=== PATIENT | female | born 1990 | race American Indian/Alaskan Native ===

== ENCOUNTER 2016-09-26 19:00 | Emergency (ER) | payer SELFPAY ==
[2016-09-26 19:27] VITALS: BP 145/95
[2016-09-26 20:15] LABS: Anion Gap 15 mmol/L; Blood Urea Nitrogen 10 mg/dL (7-17); Calcium 9.3 mg/dL (8.4-10.2); Carbon Dioxide 26 mmol/L (22-30); Chloride 101.9 mmol/L (98-107); Glucose 102 mg/dL (65-100); Potassium 3.7 mmol/L (3.6-5.0); Sodium 139 mmol/L (137-145)
[2016-09-26 20:33] LABS: Basophils % (Auto) 0.3 % (0.0-1.8); Eosinophils % (Auto) 0.9 % (0.0-4.3); Hematocrit 41.6 % (30.3-42.9); Hemoglobin 13.8 gm/dl (10.1-14.3); Mean Corpuscular HGB Conc 33 % (30-34); Mean Corpuscular Hemoglobin 30 pg (28-32); Mean Corpuscular Volume 92 fl (79-97); Platelet Count 226 K/mm3 (140-440); Red Blood Count 4.53 M/mm3 (3.65-5.03); Red Cell Distribution Width 13.9 % (13.2-15.2); White Blood Count 7.4 K/mm3 (4.5-11.0)
[2016-09-26 21:49] LABS: Bilirubin,Urine NEG (Negative); Blood,Urine SM (Negative); Ketones,Urine TR mg/dL (Negative); Leukocyte Esterase,Urine NEG (Negative); Mucus,Urine FEW /HPF; Nitrite,Urine NEG (Negative); Protein,Urine <15 mg/dL mg/dL (Negative); Urobilinogen,Urine < 2.0 mg/dL (<2.0); WBC,Urine < 1.0 /HPF (0.0-6.0)
== END 2016-09-26 19:45 | disposition left against medical advice (07) ==
LOC: ED 19:00
DX: R10.9 Unspecified abdominal pain (principal); Z53.21 Procedure and treatment not carried out due to patient leaving prior to being seen by health care provider
CPT/HCPCS: 36415; 80048; 81001; 81025; 85025

== ENCOUNTER 2016-12-23 14:21 | Emergency (ER) | payer MEDICAID ==
--- NOTE | 2016-12-23 15:06 | Emergency Department Report ---
ED Abdominal Pain HPI - General Chief Complaint: Pain General Stated Complaint: 16 WKS /BODY SORE/HEADACHE Time Seen by Provider: 12/23/16 14:58 Source: patient Mode of arrival: Ambulatory Limitations: No Limitations - History of Present Illness Complaint: abdominal pain -: Gradual, days(s) (2) Location: diffuse Radiation: none Migration to: no migration Severity: moderate Severity scale (0 -10): 4 Quality: cramping Consistency: constant Improves With: nothing Worsens With: nothing Associated Symptoms: denies: denies other symptoms (entire body hurts), nausea, vomiting, diarrhea, chills, constipation, dysuria, hematemesis, melena, hematuria, anorexia, syncope - Related Data LMP (females 10-50): other (concerned bc preg and cant get care bc she has no card. they told her she had to be a pt) Home Medications Medication Instructions Recorded Confirmed Last Taken Labetalol HCl 100 PO BID 03/22/13 03/22/13 04/19/13 09:00 Previous Rx's Medication Instructions Recorded Last Taken Type Ferrous Sulfate [Feosol 325 MG tab] 325 mg PO BID #60 tablet 03/14/13 04/19/13 09:00 Rx metroNIDAZOLE [Flagyl TAB] 500 mg PO BID #14 tablet 04/20/13 Unknown Rx Acetaminophen/Codeine 1 tab PO Q6H PRN #20 tab 04/01/14 Unknown Rx [Acetaminophen-Codeine #3 TAB] Ibuprofen [Motrin 800 MG tab] 800 mg PO Q8H PRN #60 tablet 04/01/14 Unknown Rx Azithromycin [Zithromax] 500 mg PO QDAY #3 tablet 05/27/14 Unknown Rx Prednisone [predniSONE 5 mg (6-Day 5 mg PO .TAPER #1 tab.ds.pk 05/27/14 Unknown Rx Pack, 21 Tabs)] traMADol [Ultram] 50 mg PO Q6HR PRN #20 tablet 05/27/14 Unknown Rx Amoxicillin [Trimox CAP] 500 mg PO BID #20 capsule 06/25/15 Unknown Rx Ibuprofen [Motrin 800 MG tab] 800 mg PO Q8HR PRN #30 tablet 06/25/15 Unknown Rx Amoxicillin [Trimox CAP] 500 mg PO BID #20 capsule 12/23/16 Unknown Rx Allergies Allergy/AdvReac Type Severity Reaction Status Date / Time No Known Allergies Allergy Unverified 03/14/13 02:38 ED Review of Systems ROS: Stated complaint: 16 WKS /BODY SORE/HEADACHE Other details as noted in HPI Comment: All other systems reviewed and negative Constitutional: no symptoms reported, see HPI, malaise, other (post nasal gtt. asthma not giving her any problems. ). denies: chills, diaphoresis, fever Eyes: as per HPI. denies: eye pain, eye discharge, vision change ENT: as per HPI. denies: ear pain, throat pain, dental pain, hearing loss, epistaxis Respiratory: no symptoms reported, see HPI. denies: cough, orthopnea Cardiovascular: as per HPI. denies: chest pain, palpitations, dyspnea on exertion, orthopnea Endocrine: no symptoms reported, see HPI. denies: excessive sweating, flushing , intolerance to cold, intolerance to heat Gastrointestinal: as per HPI, abdominal pain, other (eating po). denies: nausea , vomiting, diarrhea, constipation, hematemesis, melena, hematochezia Genitourinary: as per HPI, other (no urinary s/s; no fever; no vag bleed or dc; not concerned for std; term infant had bp problems w preg; has not got care). denies: urgency, dysuria, frequency, hematuria, discharge, abnormal menses, dyspareunia Musculoskeletal: as per HPI. denies: back pain, joint swelling, arthralgia, myalgia Skin: as per HPI. denies: rash, lesions Neurological: as per HPI, weakness. denies: headache, numbness, paresthesias, confusion, abnormal gait, vertigo Psychiatric: as per HPI, other (tearful) Hematological/Lymphatic: as per HPI. denies: easy bleeding, easy bruising ED Past Medical Hx - Past Medical History Previous Medical History?: Yes Hx Hypertension: Yes (not prescibed meds- was w preg) Hx Congestive Heart Failure: No Hx Diabetes: No Hx Deep Vein Thrombosis: No Hx Renal Disease: No Hx Sickle Cell Disease: No Hx Seizures: No Hx Asthma: Yes Hx COPD: No Hx HIV: No Additional medical history: Sinus infection - Surgical History Past Surgical History?: Yes Additional Surgical History: csection. term - Family History Family history: no significant - Social History Smoking Status: Never Smoker Substance Use Type: Alcohol, Non Opiate Pain - Medications Home Medications: Home Medications Medication Instructions Recorded Confirmed Last Taken Type Ferrous Sulfate [Feosol 325 MG tab] 325 mg PO BID #60 tablet 03/14/13 04/19/13 09:00 Rx Labetalol HCl 100 PO BID 03/22/13 03/22/13 04/19/13 09:00 History metroNIDAZOLE [Flagyl TAB] 500 mg PO BID #14 tablet 04/20/13 Unknown Rx Acetaminophen/Codeine 1 tab PO Q6H PRN #20 tab 04/01/14 Unknown Rx [Acetaminophen-Codeine #3 TAB] Ibuprofen [Motrin 800 MG tab] 800 mg PO Q8H PRN #60 tablet 04/01/14 Unknown Rx Azithromycin [Zithromax] 500 mg PO QDAY #3 tablet 05/27/14 Unknown Rx Prednisone [predniSONE 5 mg (6-Day 5 mg PO .TAPER #1 tab.ds.pk 05/27/14 Unknown Rx Pack, 21 Tabs)] traMADol [Ultram] 50 mg PO Q6HR PRN #20 tablet 05/27/14 Unknown Rx Amoxicillin [Trimox CAP] 500 mg PO BID #20 capsule 06/25/15 Unknown Rx Ibuprofen [Motrin 800 MG tab] 800 mg PO Q8HR PRN #30 tablet 06/25/15 Unknown Rx Amoxicillin [Trimox CAP] 500 mg PO BID #20 capsule 12/23/16 Unknown Rx ED Physical Exam - General Limitations: No Limitations General appearance: alert, in no apparent distress - Head Head exam: Present: atraumatic - Eye Eye exam: Present: PERRL - ENT ENT exam: Present: normal exam, mucous membranes moist, other (eating all day while in er) - Neck Neck exam: Present: normal inspection, full ROM. Absent: tenderness, meningismus, lymphadenopathy, thyromegaly - Respiratory Respiratory exam: Present: normal lung sounds bilaterally. Absent: respiratory distress, wheezes, rales, rhonchi, stridor, chest wall tenderness, accessory muscle use, decreased breath sounds, prolonged expiratory - Cardiovascular Cardiovascular Exam: Present: regular rate, normal rhythm - GI/Abdominal GI/Abdominal exam: Present: soft, normal bowel sounds. Absent: distended, tenderness, guarding, rebound, rigid, diminished bowel sounds, hyperactive bowel sounds, hypoactive bowel sounds, organomegaly, mass, bruit, pulsatile mass - Rectal Rectal exam: Present: deferred - External exam: Present: normal external exam Speculum exam: Present: normal speculum exam Bi-manual exam: Present: normal bi-manual exam - Extremities Exam Extremities exam: Present: normal inspection, full ROM, normal capillary refill. Absent: tenderness, pedal edema, joint swelling, calf tenderness - Back Exam Back exam: Present: normal inspection, full ROM. Absent: tenderness, CVA tenderness (R), CVA tenderness (L), muscle spasm, paraspinal tenderness, vertebral tenderness - Neurological Exam Neurological exam: Present: alert, altered, oriented X3, CN II-XII intact, normal gait, reflexes normal. Absent: abnormal gait, motor sensory deficit - Psychiatric Psychiatric exam: Present: normal affect, normal mood. Absent: depressed, agitated - Skin Skin exam: Present: warm, dry, intact, normal color. Absent: cyanosis, diaphoretic, erythema, urticaria, vesicles ED Course Vital Signs 12/23/16 14:46 Temperature 98 F Pulse Rate 97 H Respiratory 20 Rate Blood Pressure 112/68 O2 Sat by Pulse 100 Oximetry - Reevaluation(s) Reevaluation #1: 12/23/16 to er known preg concerned bc she cant get card for obgyn care no cough recent post nasal sinus kline no cp or sob asthma not problematic no dysuria no vag dc not concerned of std eating all day Reevaluation #2: 12/23/16 18:47 labs noted ua noted will tx for sinus infection cx urine- in the event pos call her prn no dysuria no vag dc abd exam benign on palpation lungs cta us noted thc noted discussed w pt dc home w obgyn fu see dc poc. ED Medical Decision Making - Lab Data Result diagrams: 12/23/16 15:21 12/23/16 15:21 - Radiology Data Radiology results: report reviewed - Medical Decision Making preg no care bc no card yet labs noted urti see exam wbc noted amox po discussed thc w pt will see ob Critical care attestation.: If time is entered above; I have spent that time in minutes in the direct care of this critically ill patient, excluding procedure time. ED Disposition Clinical Impression: IUP (intrauterine ), incidental, Sinusitis Disposition: DC-01 TO HOME OR SELFCARE Is pt being admited?: No Does the pt Need Aspirin: No Condition: Stable Instructions: (ED), Sinusitis (ED) Additional Instructions: safe sex no drugs in preg vitamin w iron tylenol for pain rest hydrate well with water follow up obgyn [facility] Prescriptions: Amoxicillin [Trimox CAP] 500 mg PO BID #20 capsule Referrals: PRIMARY CARE, [Primary Care Provider] - 3-5 Days JULIO CESAR BO MD [Staff Physician] - 3-5 Days Time of Disposition: 18:36
[2016-12-23 15:25] LABS: Urine Drugs of Abuse Note Disclamer
[2016-12-23 15:37] LABS: Bilirubin,Urine NEG (Negative); Blood,Urine NEG (Negative); Ketones,Urine NEG (Negative); Leukocyte Esterase,Urine NEG (Negative); Mucus,Urine 2+ /HPF; Nitrite,Urine NEG (Negative); Urobilinogen,Urine < 2.0 mg/dL (<2.0)
[2016-12-23 15:38] LABS: Eosinophils % (Auto) 0.1 % (0.0-4.3); Hematocrit 35.2 % (30.3-42.9); Hemoglobin 11.7 gm/dl (10.1-14.3); Mean Corpuscular HGB Conc 33 % (30-34); Mean Corpuscular Hemoglobin 31 pg (28-32); Mean Corpuscular Volume 92 fl (79-97); Platelet Count 204 K/mm3 (140-440); Red Blood Count 3.82 M/mm3 (3.65-5.03); Red Cell Distribution Width 13.5 % (13.2-15.2); White Blood Count 13.6 K/mm3 (4.5-11.0)
[2016-12-23 15:54] LABS: Alanine Aminotransferase 9 units/L (7-56); Albumin 4.1 g/dL (3.9-5); Albumin/Globulin Ratio 1.5 %; Alkaline Phosphatase 60 units/L (35-129); Anion Gap 18 mmol/L; BUN/Creatinine Ratio 11.66; Blood Urea Nitrogen 7 mg/dL (7-17); Carbon Dioxide 25 mmol/L (22-30); Chloride 96.2 mmol/L (98-107); Glucose 124 mg/dL (65-100); Potassium 3.9 mmol/L (3.6-5.0); Sodium 135 mmol/L (137-145); Total Protein 6.9 g/dL (6.3-8.2)
[2016-12-23 16:02] LABS: Bilirubin,Direct < 0.2 mg/dL (0-0.2); Bilirubin,Indirect 0.1 mg/dL
--- NOTE | 2016-12-23 16:53 | Ultrasound Report ---
Transabdominal OB ultrasound. Street: Pelvic pain. Findings: A single intrauterine is identified. The biparietal diameter measures 1.9 cm which corresponds to gestational age of 13 weeks. The femur length measures 8 mm which corresponds to a gestational age of 12 weeks 4 days. The heart rate measures 170 beats per minute. The placenta is anterior. The ovaries are normal in size and configuration. Impression: Viable intrauterine of 12 weeks 6 days gestation.
[2016-12-23 18:51] VITALS: BP 108/67
== END 2016-12-23 18:50 | disposition home or self-care (01) ==
LOC: ED 14:21
DX: J32.9 Chronic sinusitis, unspecified (principal); Z33.1 Pregnant state, incidental; J45.909 Unspecified asthma, uncomplicated
CPT/HCPCS: 36415; 76805; 80048; 80074; 80307; 81001; 84702; 85025; 86900; 86901; 87086; 99284

== ENCOUNTER 2017-03-21 02:19 | Emergency (ER) | payer MEDICAID ==
[2017-03-21 03:11] VITALS: BP 115/76
== END 2017-03-21 05:55 | disposition left against medical advice (07) ==
LOC: ED 02:19
DX: L02.422 Furuncle of left axilla (principal); Z53.21 Procedure and treatment not carried out due to patient leaving prior to being seen by health care provider

== ENCOUNTER 2017-05-10 20:11 | Outpatient (CLI) | payer MEDICAID | END 2017-05-10 20:17 | disposition home or self-care (01) | LOC: TRG 20:11 | PROVIDERS: ATTEND Midwife | DX: O36.0130 Maternal care for anti-D [Rh] antibodies, third trimester, not applicable or unspecified (principal); Z3A.29 29 weeks gestation of pregnancy | CPT/HCPCS: 86850; 86900; 86901; 96372; J2790 ==

== ENCOUNTER 2017-06-16 00:02 | Outpatient (CLI) | payer MEDICAID ==
[2017-06-16 00:55] VITALS: BP 123/64
[2017-06-16] MEDS ORDERED: NORCO 7.5/325 PO ONE (01:05)
== END 2017-06-16 01:34 | disposition home or self-care (01) ==
LOC: TRG 00:02
PROVIDERS: ATTEND Obstetrics & Gynecology
DX: O47.1 False labor at or after 37 completed weeks of gestation (principal); Z3A.37 37 weeks gestation of pregnancy
CPT/HCPCS: 59025

== ENCOUNTER 2017-06-19 02:14 | Outpatient (CLI) | payer MEDICAID ==
[2017-06-19 02:26] VITALS: BP 134/76
== END 2017-06-19 03:57 | disposition home or self-care (01) ==
LOC: TRG 02:14
PROVIDERS: ATTEND Obstetrics & Gynecology
DX: O62.9 Abnormality of forces of labor, unspecified (principal); Z3A.38 38 weeks gestation of pregnancy

== ENCOUNTER 2017-06-29 09:34 | Inpatient (IN) | payer MEDICAID ==
[2017-06-29] MEDS ORDERED: REGLAN IV NR (10:00)
[2017-06-29] MEDS ORDERED: PEPCID IV NR (10:00)
[2017-06-29] MEDS ORDERED: BICITRA PO NR (10:00)
[2017-06-29] MEDS ORDERED: ANCEF/STERILE WATER 2 GM/20 ML 2 GM/20 ML SYRINGE IV NR (10:00)
[2017-06-29] MEDS: LACTATED RINGERS 1,000 ML IV SCH ×3 (10:41→21:08)
[2017-06-29 10:52] LABS: Basophils % (Auto) 0.1 % (0.0-1.8); Eosinophils # (Auto) 0.1 K/mm3 (0.0-0.4); Eosinophils % (Auto) 0.6 % (0.0-4.3); Hematocrit 33.2 % (30.3-42.9); Hemoglobin 11.2 gm/dl (10.1-14.3); Lymphocytes # (Auto) 1.5 K/mm3 (1.2-5.4); Lymphocytes % (Auto) 14.5 % (13.4-35.0); Mean Corpuscular HGB Conc 34 % (30-34); Mean Corpuscular Hemoglobin 30 pg (28-32); Mean Corpuscular Volume 89 fl (79-97); Monocytes # (Auto) 0.8 K/mm3 (0.0-0.8); Monocytes % (Auto) 7.8 % (0.0-7.3); Platelet Count 182 K/mm3 (140-440); Red Blood Count 3.73 M/mm3 (3.65-5.03)
--- NOTE | 2017-06-29 11:15 | History and Physical Report ---
History of Present Illness Date of examination: 06/29/17 Date of admission: 06/29/17 09:34 Chief complaint: repeat c/sec at term History of present illness: This is a 27 yo at 39+ weeks for repepat c/sec. her OB problem list include previous c/sec for Preeclmapisa. EDC 07/06/17. She is rh neg received rhogam at 28 weeks. Patient of [facility] late at 20 weeks. + SMA seen by [facility]. Past History Past Medical History: asthma Past Surgical History: section [employer] History: gonorrhea Family/Genetic History: diabetes, heart disease Social history: no significant social history, single. denies: smoking, alcohol abuse, prescription drug abuse - Obstetrical History Expected Date of Delivery: 07/06/17 Actual Gestation: 39 Week(s) 0 Day(s) : 2 Para: 1 Hx # Term Pregnancies: 1 Number of Pregnancies: 0 Spontaneous Abortions: 0 Induced : 0 Number of Living Children: 1 Medications and Allergies Allergies Allergy/AdvReac Type Severity Reaction Status Date / Time No Known Allergies Allergy Verified 06/16/17 00:12 Home Medications Medication Instructions Recorded Confirmed Last Taken Type Ferrous Sulfate [Feosol 325 MG tab] 325 mg PO BID #60 tablet 03/14/13 06/19/17 04/19/13 09:00 Rx Labetalol HCl 100 mg PO BID 03/22/13 06/19/17 04/19/13 09:00 History metroNIDAZOLE [Flagyl TAB] 500 mg PO BID #14 tablet 04/20/13 06/19/17 Unknown Rx Acetaminophen/Codeine 1 tab PO Q6H PRN #20 tab 04/01/14 06/19/17 Unknown Rx [Acetaminophen-Codeine #3 TAB] Ibuprofen [Motrin 800 MG tab] 800 mg PO Q8H PRN #60 tablet 04/01/14 06/19/17 Unknown Rx Azithromycin [Zithromax] 500 mg PO QDAY #3 tablet 05/27/14 06/19/17 Unknown Rx Prednisone [predniSONE 5 mg (6-Day 5 mg PO .TAPER #1 tab.ds.pk 05/27/14 Unknown Rx Pack, 21 Tabs)] traMADol [Ultram] 50 mg PO Q6HR PRN #20 tablet 11/30/14 12/23/17 Unknown Rx Amoxicillin [Trimox CAP] 500 mg PO BID #20 capsule 06/25/15 06/19/17 Unknown Rx Ibuprofen [Motrin 800 MG tab] 800 mg PO Q8HR PRN #30 tablet 06/25/15 06/19/17 Unknown Rx Amoxicillin [Trimox CAP] 500 mg PO BID #20 capsule 12/23/16 06/19/17 Unknown Rx Active Meds: Active Medications Citric Acid/Sodium Citrate (Bicitra) 30 ml PO ONCE NR Stop: 06/29/17 16:00 Last Admin: 06/29/17 10:42 Dose: 30 ml Famotidine (Pepcid) 20 mg IV ONCE NR Stop: 06/29/17 16:00 Last Admin: 06/29/17 10:42 Dose: 20 mg Cefazolin Sodium (Ancef/Sterile Water 2 Gm/20 Ml) 2 gm in 20 mls @ 80 mls/hr IV PREOP NR PRN Reason: Protocol Stop: 06/29/17 16:00 Lactated Ringer's (Lactated Ringers) 1,000 mls @ 2,250 mls/hr IV PREOP KIKA Stop: 06/30/17 10:27 Last Admin: 06/29/17 10:52 Dose: 2,250 mls/hr Oxytocin/Sodium Chloride (Pitocin/Ns 20 Unit/1000ml Drip) 20 units in 1,000 mls @ 0 mls/hr IV TITR KIKA PRN Reason: As Directed Metoclopramide HCl (Reglan) 10 mg IV ONCE NR Stop: 06/29/17 16:00 Last Admin: 06/29/17 10:42 Dose: 10 mg Review of Systems All systems: negative - Vital Signs Vital signs: Vital Signs Pulse BP 96 H 120/68 06/29/17 10:04 06/29/17 10:04 Temp Pulse Resp BP Pulse Ox 98.2 F 92 H 18 128/79 06/29/17 10:16 06/29/17 10:46 06/29/17 10:16 06/29/17 10:46 - Physical Exam Breasts: Positive: normal Cardiovascular: Regular rate, Normal S1 Lungs: Positive: Clear to auscultation, Normal air movement Abdomen: Positive: normal appearance, soft, normal bowel sounds. Negative: distention, tenderness, guarding Genitourinary (Female): Positive: normal external genitalia, normal perenium Vulva: both: normal Vagina: Positive: normal moisture Uterus: Positive: normal size, normal contour Anus/Rectum: Positive: normal perianal skin Extremities: Positive: normal Deep Tendon Reflex Grade: Normal +2 - Obstetrical FHR: auscultation normal, category 1 Results Result Diagrams: 06/29/17 10:10 Abnormal lab results 06/29/17 Range/Units 10:10 [place] % (Auto) 7.8 H (0.0-7.3) % Seg Neutrophils % 77.0 H (40.0-70.0) % Seg Neutrophils # 7.9 H (1.8-7.7) K/mm3 All other labs normal. Assessment and Plan A/P HD#1 scheduled repeat c/sec IVF labs discussed r/b/a of repeat which include but not limited to bleeding, infection, damge to pelvic and non pelvic organs, risk of hysterectomy , risk of . patient had all opportunity for questions will proceed with repeat c/sec
--- NOTE | 2017-06-29 11:18 | Anesthesia Day of Surgery ---
Anesthesia Day of Surgery - Day of Surgery Patient Examined: Yes Patient H&P Reviewed: Yes Patient is NPO: Yes
--- NOTE | 2017-06-29 11:18 | Anesthesia Consultation ---
Anesthesia Consult and Med Hx Date of service: 06/29/17 - Airway Anesthetic Teeth Evaluation: Good ROM Head & Neck: Adequate Mental/Hyoid Distance: Adequate Mallampati Class: Class II Intubation Access Assessment: Probably Good - Pre-Operative Health Status ASA Pre-Surgery Classification: ASA2 Proposed Anesthetic Plan: General - Pulmonary Hx Asthma: Yes COPD: No Hx Pneumonia: No - Cardiovascular System Hx Hypertension: No - Central Nervous System Hx Seizures: No Hx Psychiatric Problems: No - Endocrine Hx Renal Disease: No Hx End Stage Renal Disease: No Hx Hypothyroidism: No Hx Hyperthyroidism: No - Hematic Hx Anemia: No Hx Sickle Cell Disease: No - Other Systems Hx Alcohol Use: No - Additional Comments Anesthesia Medical History Comments: Healthy. NAC previously.
[2017-06-29] MEDS ORDERED: SUBLIMAZE ONE (11:22)
[2017-06-29] MEDS ORDERED: ANCEF/STERILE WATER 2 GM/20 ML IV ONE (11:47)
[2017-06-29] MEDS ORDERED: ZOFRAN ONE (11:52)
[2017-06-29] MEDS ORDERED: WATER FOR IRRIG STERILE IR ONE (11:53)
[2017-06-29] MEDS ORDERED: NACL 0.9% IR ONE (11:53)
[2017-06-29] MEDS ORDERED: PITOCin/NS 20 UNIT/1000ML DRIP 20 UNITS/1,000 ML BAG IV SCH ×2 (12:00→13:00)
[2017-06-29] MEDS ORDERED: LACTATED RINGERS 1,000 ML IV SCH (12:00)
[2017-06-29] MEDS: PITOCin/NS 20 UNIT/1000ML DRIP 20 UNITS/1,000 ML BAG IV SCH ×2 (12:15→13:00)
[2017-06-29] MEDS ORDERED: NARCAN 0.4 MG/1 ML IV PRN (12:50)
[2017-06-29] MEDS ORDERED: MYLICON PO PRN (12:50)
[2017-06-29] MEDS ORDERED: SENOKOT PO PRN (12:50)
[2017-06-29] MEDS ORDERED: TUCKS PAD TP PRN (12:50)
[2017-06-29] MEDS ORDERED: LANSINOH TP PRN (12:50)
[2017-06-29] MEDS ORDERED: ZOFRAN IV PRN (12:50)
[2017-06-29] MEDS ORDERED: PHENERGAN PR PRN (12:50)
[2017-06-29] MEDS ORDERED: MILK OF MAGNESIA PO PRN (12:50)
[2017-06-29] MEDS ORDERED: ANUCORT-HC PR PRN (12:50)
[2017-06-29] MEDS ORDERED: TYLENOL PO PRN (12:50)
--- NOTE | 2017-06-29 12:50 | Operative Report ---
Operative Report Operative Report: Date: 06/29/17 PREOPERATIVE DIAGNOSIS: Previous section. POSTOPERATIVE DIAGNOSIS: Previous section. PROCEDURE: Repeat section. 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 ESTIMATED BLOOD LOSS: 800 mL COMPLICATIONS: None. FINDINGS: Beautiful baby girl, Apgars 8 and 9, weight is 6 pounds 1 ounces. Normal uterus, tubes and ovaries. Three-vessel cord, intact placenta. INDICATIONS: This is a 27-year-old 2, para 1, at term with history of previous section, otherwise uncomplicated course. Risks, benefits, and alternatives discussed with the patient at length including risks of morbidity and mortality of fetus, including risks of morbidity and mortality of mother, including risks of hemorrhage, infection, and injury to bowel, bladder, and uterus. Risks were accepted. The patient was taken to the operating room. Spinal anesthesia was given without difficulty. She was then prepped and draped in normal sterile fashion, dorsal supine position with leftward tilt. Pfannenstiel incision was made with scalpel carried through to the underlying layer of fascia with Bovie. Fascia was incised midline extended laterally. Rectus muscle dissected with Bovie. Peritoneum identified and entered. Bladder flap created. Uterine incision was made with scalpel, extended laterally. Clear fluid was noted. Baby girl was delivered from vertex presentation to leave suction at abdomen. Cord clamped and cut. Baby handed off to the awaiting wedding decorator. Three-vessel cord intact. Placenta was delivered spontaneously. Uterus exteriorized and cleared of all debris. Uterine incision was repaired with 0 Vicryl in a running fashion. Second layer was used to obtain hemostasis.Thissel used for excellent hemostasis. The uterus was returned to the abdomen. Uterine incision was inspected and noted to be hemostatic. The gutters were cleared of all clots. The fascia was repaired with 1 Vicryl in a running fashion. The skin was closed with 4-0 shell needle. The patient tolerated the procedure well. Sponge, lap, and needle counts were correct x3. The patient was taken to the recovery room in stable condition.
[2017-06-29] MEDS ORDERED: SODIUM CHLORIDE FLUSH SYRINGE 10 ML IV NR (13:00)
[2017-06-29] MEDS: TORADOL IV PRN (13:59)
[2017-06-29] MEDS: MORPHINE IV PRN ×2 (14:00→19:55)
[2017-06-29] MEDS ORDERED: TORADOL IV ONE (15:44)
[2017-06-30] MEDS: TORADOL IV PRN (00:25)
[2017-06-30] MEDS: PERCOCET 5/325 PO PRN ×3 (01:49→18:57)
[2017-06-30 01:51] LABS: Hematocrit 27.6 % (30.3-42.9); Hemoglobin 9.1 gm/dl (10.1-14.3)
[2017-06-30] MEDS: MOTRIN PO PRN ×2 (05:35→12:45)
[2017-06-30] MEDS ORDERED: BOOSTRIX IM ONE (06:00)
[2017-06-30] MEDS ORDERED: M-M-R II VACCINE SUB-Q ONE (06:00)
--- NOTE | 2017-06-30 08:34 | Progress Note ---
Assessment and Plan A/P POD#1 s/p repeat doing well tolerating diet flatus+ VSS bonding with baby miraaliyah for control needs rhogam rh neg continue routine Post op orders Subjective - Subjective Date of service: 06/30/17 Principal diagnosis: repeat Interval history: This is a 27 yo at 39+ weeks for repepat c/sec. her OB problem list include previous c/sec for Preeclmapisa. EDC 07/06/17. She is rh neg received rhogam at 28 weeks. Patient of [facility] late at 20 weeks. + SMA seen by [facility]. Patient reports: appetite normal, voiding normally, pain well controlled, flatus , ambulating normally [place]: doing well Objective - Vital Signs Latest vital signs: Vital Signs Temp Pulse Resp BP BP Pulse Ox 06/30/17 05:35 18 06/30/17 05:10 98.0 F 74 18 146/85 100 06/30/17 01:49 18 06/30/17 01:00 98.8 F 84 18 117/64 98 06/30/17 00:55 18 06/30/17 00:25 18 06/29/17 20:45 99.2 F 88 18 110/71 95 06/29/17 20:25 18 06/29/17 19:55 18 06/29/17 16:00 99 F 81 18 122/81 06/29/17 14:15 99.4 F 84 20 120/80 96 06/29/17 13:50 85 17 117/81 97 06/29/17 13:48 98.6 F 06/29/17 13:45 81 20 124/81 98 06/29/17 13:40 80 23 117/79 96 06/29/17 13:35 82 34 H 114/81 98 06/29/17 13:30 76 19 123/83 98 06/29/17 13:25 76 22 128/82 98 06/29/17 13:20 74 29 H 131/83 99 06/29/17 13:15 76 19 130/74 100 06/29/17 13:10 74 18 128/81 100 06/29/17 13:05 75 18 92/69 100 06/29/17 13:01 22 92/69 100 06/29/17 12:56 100 06/29/17 12:55 98.5 F 06/29/17 10:46 92 H 128/79 06/29/17 10:25 90 118/74 06/29/17 10:16 98.2 F 96 H 18 120/68 06/29/17 10:04 96 H 12068 Intake and Output 06/29/17 06/30/17 06/30/17 23:59 07:59 15:59 Intake Total 480 240 Output Total 600 900 Balance -120 -660 Intake: Oral 480 240 Output: Urine 600 900 Indwelling Catheter 600 400 Void 500 Other: Total, Intake Amount 240 120 Total, Output Amount 600 500 - Exam Breasts: Present: normal Cardiovascular: Present: Regular rate, Normal S1 Lungs: Present: Clear to auscultation, Normal air movement Abdomen: Present: normal appearance, soft, normal bowel sounds. Absent: distention, tenderness, guarding Vulva: both: normal Uterus: Present: normal, firm, fundal height below umbilicus (-1cm). Absent: bogginess, tenderness Extremities: Present: normal Deep Tendon Reflex Grade: Normal +2 Incision: Present: normal, dry, dressed - Labs Labs: Abnormal lab results 06/29/17 06/30/17 Range/Units 10:10 01:05 Hgb 9.1 L (10.1-14.3) gm/dl Hct 27.6 L (30.3-42.9) % [place] % (Auto) 7.8 H (0.0-7.3) % Seg Neutrophils % 77.0 H (40.0-70.0) % Seg Neutrophils # 7.9 H (1.8-7.7) K/mm3
[2017-06-30] MEDS: FEOSOL PO SCH (12:45)
[2017-06-30] MEDS: PRENATAL VITAMIN PO SCH (12:45)
[2017-07-01] MEDS: NORCO 5/325 PO PRN ×3 (00:33→21:39)
[2017-07-01] MEDS: MOTRIN PO PRN ×2 (00:34→21:38)
[2017-07-01] MEDS: FEOSOL PO SCH (09:25)
[2017-07-01] MEDS: PRENATAL VITAMIN PO SCH (09:25)
--- NOTE | 2017-07-01 13:24 | Progress Note ---
Assessment and Plan O: VSS AF PP H/H: 9.1/27.6 A: Repeat C/S Day 2 Anemia No flatus P: Iron BID Gas X Ambulate Subjective - Subjective Date of service: 07/01/17 Principal diagnosis: repeat Patient reports: appetite normal (Tolerated small amount of regular diet without N/V), voiding normally, pain well controlled, ambulating normally (only ambulated once in [place] since C/S), no flatus Objective - Vital Signs Latest vital signs: Vital Signs Temp Pulse Resp BP 07/01/17 00:56 98.2 F 83 18 121/71 06/30/17 17:30 98.4 F 79 18 121/66 Intake and Output 06/30/17 07/01/17 07/01/17 22:59 06:59 14:59 Intake Total 600 Output Total 1 Balance 600 -1 Intake: Oral 240 Intake, Free Water 360 Output: Urine 1 Void 1 Other: Total, Intake Amount 240 Total, Output Amount 1 # Voids Void 1 - Exam Breasts: Present: deferred Abdomen: Present: normal appearance, soft. Absent: distention Vulva: both: normal Uterus: Present: normal, firm, fundal height below umbilicus. Absent: bogginess , tenderness Extremities: Present: normal Incision: Present: normal, dry, intact, dressed
[2017-07-01] MEDS: PERCOCET 5/325 PO PRN (17:00)
[2017-07-01] MEDS: MILK OF MAGNESIA PO SCH ×2 (19:40→23:49)
[2017-07-02] MEDS: PERCOCET 5/325 PO PRN (01:21)
[2017-07-02] MEDS: MILK OF MAGNESIA PO SCH (03:32)
[2017-07-02] MEDS ORDERED: PERCOCET 5/325 PO PRN (07:26)
[2017-07-02] MEDS ORDERED: TORADOL IV PRN (07:27)
--- NOTE | 2017-07-02 08:19 | Query-Anemia ---
Che Shay Date:_07/02/17 Hospitalist Nocturnist Physician/CDS:Darci Phone#:_[phone] Exercise your independent professional judgment when responding to this query. Questions asked do not imply a particular answer is desired or expected. We greatly appreciate your clarification on this issue. Clinical Documentation States: 27 yo at 39+ weeks was admitted on 06/29/17 for repeat c/sec. Operative Report ( Dr. Shay) states"PREOPERATIVE DIAGNOSIS: Previous section. POSTOPERATIVE DIAGNOSIS: Previous section. PROCEDURE: Repeat section. ESTIMATED BLOOD LOSS: 800 mL " Clinical Findings Show: 06/29/17 06/30/17 Hb 11.2 9.1 Hct_ 33.2 27.6 Etiology: [ ] Anemia due to acute blood loss [ ] Anemia due to chronic blood loss [ ] Anemia secondary to ESRD [ ] Anemia secondary to neoplastic disease [ ] Iron deficiency anemia due to malabsorption [ ] GI Bleed from: [ ] Anemia of chronic disease ,Other: [ ] Precipitous Drop in Hemoglobin [ ] Precipitous Drop in Hematocrit [ ] Other: [ ] Unable to determine [ ] Comment/Explanation: Present on Admission: [ ] Yes (Y) [ ] Clinically undeterminable (W) [ ] No (N) Please also document response in your Progress Notes and/or Discharge Summary and indicate if the condition was present on admission. AWAISD
[2017-07-02 08:27] VITALS: BP 116/72
--- NOTE | 2017-07-02 08:48 | Progress Note ---
Assessment and Plan A: POD#3 s/p repeat section at term, Anemia P: Discharge today with follow up in two wks for incision check. Subjective - Subjective Date of service: 07/02/17 Principal diagnosis: repeat Interval history: Pt had two bowel movement this morning. She is asking to go home. Patient reports: appetite normal, voiding normally, pain well controlled, flatus , bowel movement, ambulating normally, no nauseated [place]: doing well Objective - Vital Signs Latest vital signs: Vital Signs Temp Pulse Resp BP BP Pulse Ox 07/02/17 07:43 98.4 F 79 16 116/72 98 07/02/17 00:00 98.0 F 73 20 128/73 07/01/17 16:04 98.3 F 85 20 132/83 99 07/01/17 16:03 98.3 F 82 20 132/83 Intake and Output 07/01/17 07/02/17 07/02/17 22:59 06:59 14:59 Intake Total 240 Balance 240 Intake: Oral 240 Other: Total, Intake Amount 120 # Voids Void 1 1 # Bowel Movements 1 - Exam Breasts: Present: deferred Cardiovascular: Present: Regular rate Lungs: Present: Clear to auscultation Abdomen: Present: soft, distention (mild ), normal bowel sounds Uterus: Present: fundal height below umbilicus Extremities: Present: normal
--- NOTE | 2017-07-02 08:50 | Discharge Summary ---
Providers - Providers Date of Admission: 06/29/17 09:34 Date of discharge: 07/02/17 Attending physician: MAG SHAY MD Primary care physician: MAG SHAY MD Hospitalization Reason for admission: section Delivery: Procedure: section, repeat low transverse Procedure details: Please see operative note Incision: intact Other procedures: none complications: none Discharge diagnosis: IUP at term delivered [place] baby: female Hospital course: Pt underwent repeat which she tolerated well. Her postoperative course was uncomplicated and she met discharge criteria on POD#3. She will follow up in two weeks with Dr Shay for an incision check. Condition at discharge: Stable Disposition: - TO HOME OR SELFCARE - Discharge Diagnoses (1) Term of female Status: Acute (2) S/P section Status: Acute (3) Anemia Status: Acute Qualifiers: Anemia type: unspecified type Qualified Code(s): D64.9 - Anemia, unspecified (4) Rh negative status during Status: Chronic Qualifiers: Trimester: third trimester Qualified Code(s): O09.893 - Supervision of other high risk pregnancies, third trimester (5) Obesity (BMI 30.0-34.9) Status: Acute Plan - Discharge Medications Prescriptions: Docusate Sodium [Colace] 100 mg PO BID PRN #30 capsule PRN Reason: Constipation Docusate Sodium [Colace] 100 mg PO BID PRN #30 capsule PRN Reason: Constipation Ferrous Sulfate 325 mg PO BID #30 tablet. Ibuprofen [Motrin] 600 mg PO Q8H PRN #30 tablet PRN Reason: Pain Ibuprofen [Motrin] 600 mg PO Q8H PRN #30 tablet PRN Reason: Pain oxyCODONE /ACETAMINOPHEN [Percocet 5/325] 1 tab PO Q6HR PRN #30 tablet PRN Reason: Pain oxyCODONE /ACETAMINOPHEN [Percocet 5/325] 1 tab PO Q6HR PRN #30 tablet PRN Reason: Pain - Provider Discharge Summary Activity: routine, no sex for 6 weeks, no heavy lifting 4 weeks, no strenuous exercise Diet: routine Instructions: routine Additional instructions: [] Smoking cessation referral if applicable(refer to patient education folder for contact #) [] Refer to [facility]'s [facility] Booklet Call your doctor immediately for: * Fever > 100.5 * Heavy vaginal bleeding ( >1 pad per hour) * Severe persistent headache * Shortness of breath * Reddened, hot, painful area to leg or breast * Drainage or odor from incision. * Keep incision clean and dry at all times and follow doctor's instructions regarding bathing/showering - Follow up plan Follow up: MAG SHAY MD [Primary Care Provider] - 07/13/17 (incision check- please call to schedule appt )
[2017-07-02] MEDS: MOTRIN PO PRN (11:40)
[2017-07-02] MEDS: PRENATAL VITAMIN PO SCH (11:40)
[2017-07-02] MEDS: FEOSOL PO SCH (11:40)
--- NOTE | 2017-07-07 08:22 | Query-Anemia ---
Che Ashraf Jaspal Date:____07/07/17 Press Offbearer/CDS: Holgersa / Davon Phone#:___[phone] Exercise your independent professional judgment when responding to this query. Questions asked do not imply a particular answer is desired or expected. We greatly appreciate your clarification on this issue. Clinical Documentation States: 27 year old female was admitted on 06/29/17 The Operative report (Dr. Shay) states " PREOPERATIVE DIAGNOSIS: Previous section. POSTOPERATIVE DIAGNOSIS: Previous section. PROCEDURE: Repeat section. ESTIMATED BLOOD LOSS: 800 mL " Clinical Findings Show: 06/29/17 06/30/17 Hgb: 11.2 9.1 Hct: 33.2 27.6 Etiology: [ ] Anemia due to acute blood loss [ ] Anemia due to chronic blood loss [ ] Anemia secondary to ESRD [ ] Anemia secondary to neoplastic disease [ ] Iron deficiency anemia due to malabsorption [ ] GI Bleed from: [ ] Anemia of chronic disease ,Other: [ ] Precipitous Drop in Hemoglobin [ ] Precipitous Drop in Hematocrit [ ] Other: [ ] Unable to determine [ ] Comment/Explanation: Present on Admission: [ ] Yes (Y) [ ] Clinically undeterminable (W) [ ] No (N) Please also document response in your Progress Notes and/or Discharge Summary and indicate if the condition was present on admission. YASHIRA
== END 2017-07-02 12:10 | disposition home or self-care (01) | DRG 765 ==
LOC: APU 09:34 → OB 14:27
PROVIDERS: ADMIT Obstetrics & Gynecology; ATTEND Obstetrics & Gynecology
PROC: 10D00Z1 Extraction of Products of Conception, Low, Open Approach (ICD-10-PCS; principal; 2017-06-29)
PROC: 3E0234Z Introduction of Serum, Toxoid and Vaccine into Muscle, Percutaneous Approach (ICD-10-PCS; 2017-06-30)
DX: O34.211 Maternal care for low transverse scar from previous cesarean delivery (principal); D62 Acute posthemorrhagic anemia; O99.52 Diseases of the respiratory system complicating childbirth; J45.909 Unspecified asthma, uncomplicated; O99.02 Anemia complicating childbirth; D64.9 Anemia, unspecified; O99.214 Obesity complicating childbirth; E66.9 Obesity, unspecified; Z3A.39 39 weeks gestation of pregnancy; Z37.0 Single live birth; Z23 Encounter for immunization; Z83.3 Family history of diabetes mellitus; Z82.49 Family history of ischemic heart disease and other diseases of the circulatory system; Z68.31 Body mass index [BMI] 31.0-31.9, adult; O26.893 Other specified pregnancy related conditions, third trimester; Z67.41 Type O blood, Rh negative
CPT/HCPCS: 36415; 85014; 85018; 85025; 86592; 86850; 86870; 86900; 86901; 90471; 90715; 99211; C9250; G0463; J0690; J1885; J2270; J2405; J2590; J2765; J3010; J7120

== ENCOUNTER 2020-07-28 18:18 | Emergency (ER) | payer MEDICAID ==
[2020-07-28] MEDS ORDERED: SULFAMETHOXAZOLE/TRIMETHOPRIM 800/160MG DS TAB PO ONE (19:19)
[2020-07-28] MEDS ORDERED: ONDANSETRON 4 MG ODT TAB PO ONE (19:19)
[2020-07-28] MEDS ORDERED: IBUPROFEN 600 MG TAB PO ONE (19:19)
[2020-07-28] MEDS ORDERED: oxyCODONE /ACETAMINOPHEN 5-325MG TAB PO ONE (19:19)
[2020-07-28] MEDS ORDERED: CLINDAMYCIN 150 MG CAP PO ONE (19:20)
[2020-07-28] MEDS ORDERED: LIDOCAINE (1%) 10 MG/1 ML VIAL 20 ML MDV INFILTRATI ONE (19:20)
--- NOTE | 2020-07-28 20:00 | Emergency Department Report ---
ED General Adult HPI - General Chief complaint: Skin/Abscess/Foreign Body Stated complaint: BOIL Source: patient Mode of arrival: Ambulatory Limitations: No Limitations - History of Present Illness Initial comments: Patient is a 30-year-old -German female with a history of asthma who presents to the ED with complaint of acute onset persistent painful swollen erythematous maculopapular rash on the left axilla for the last 5 days. Patient states that she has been applying warm compress on the same and that in the last 24 hours the pain and swelling got worse. Patient states that she is unable to perform any active range of motion of the left arm because of worsening pain and swelling on the left axilla. Patient denies fever, chills, nausea, vomiting, dizziness, syncope, chest pain or shortness of breath, cough, neck pain, numbness and tingling or weakness of left arm, back pain, fall or traumatic injury. MD Complaint: Painful swollen erythematous maculopapular rash in left axilla Onset/Timin (days) -: Sudden, days(s) (5) Location: upper extremity (left axilla) Radiation: non-radiation Severity scale (0 -10): 9 Quality: aching, sharp, constant Consistency: constant Improves with: none Worsens with: movement Associated Symptoms: denies other symptoms, loss of appetite, rash (Erythematous painful swollen maculopapular rash on left axilla). denies: confusion, chest pain, cough, diaphoresis, fever/chills, headaches, malaise, nausea/vomiting, seizure, shortness of breath, syncope, weakness, other Treatments Prior to Arrival: NSAID - Related Data Home Medications Medication Instructions Recorded Confirmed Last Taken Labetalol HCl 100 mg PO BID 03/22/13 07/02/17 04/19/13 09:00 Previous Rx's Medication Instructions Recorded Last Taken Type Ferrous Sulfate [Feosol 325 MG tab] 325 mg PO BID #60 tablet 03/14/13 04/19/13 09:00 Rx metroNIDAZOLE [Flagyl TAB] 500 mg PO BID #14 tablet 04/20/13 Unknown Rx Acetaminophen/Codeine 1 tab PO Q6H PRN #20 tab 04/01/14 Unknown Rx [Acetaminophen-Codeine #3 TAB] Ibuprofen [Motrin 800 MG tab] 800 mg PO Q8H PRN #60 tablet 04/01/14 Unknown Rx Azithromycin [Zithromax] 500 mg PO QDAY #3 tablet 05/27/14 Unknown Rx Prednisone [predniSONE 5 mg (6-Day 5 mg PO .TAPER #1 tab.ds.pk 05/27/14 Unknown Rx Pack, 21 Tabs)] Amoxicillin [Trimox CAP] 500 mg PO BID #20 capsule 06/25/15 Unknown Rx Amoxicillin [Trimox CAP] 500 mg PO BID #20 capsule 12/23/16 Unknown Rx Docusate Sodium [Colace] 100 mg PO BID PRN #30 capsule 06/29/17 Unknown Rx oxyCODONE /ACETAMINOPHEN [Percocet 1 tab PO Q6HR PRN #30 tablet 06/29/17 Unknown Rx 5/325] Docusate Sodium [Colace] 100 mg PO BID PRN #30 capsule 06/30/17 Unknown Rx Ferrous Sulfate 325 mg PO BID #30 tablet. 06/30/17 Unknown Rx Ibuprofen [Motrin] 600 mg PO Q8H PRN #30 tablet 06/30/17 Unknown Rx oxyCODONE /ACETAMINOPHEN [Percocet 1 tab PO Q6HR PRN #30 tablet 06/30/17 Unknown Rx 5/325] Butalb/Acetamin/Caff 50-325-40 1 tab PO Q6HR PRN #10 tab 04/08/18 Unknown Rx [Fioricet] Naproxen [Naprosyn] 500 mg PO BID #20 tablet 04/08/18 Unknown Rx Cyclobenzaprine [Flexeril 10 MG 10 mg PO QHS #30 tablet 06/05/18 Unknown Rx TAB] Ibuprofen [Motrin 800 MG tab] 800 mg PO Q8HR PRN #30 tablet 06/05/18 Unknown Rx Clindamycin [Clindamycin CAP] 300 mg PO Q8HR #60 capsule 07/28/20 Unknown Rx Ibuprofen [Motrin 600 MG tab] 600 mg PO Q8H PRN #30 tablet 07/28/20 Unknown Rx Ondansetron [Zofran Odt] 4 mg PO Q6HR PRN #15 tab.rapdis 07/28/20 Unknown Rx Sulfamethoxazole/Trimethoprim 1 each PO Q12H #20 tablet 07/28/20 Unknown Rx [Bactrim DS TAB] traMADoL [Ultram 50 MG tab] 50 mg PO Q6HR PRN #12 tablet 07/28/20 Unknown Rx Allergies Allergy/AdvReac Type Severity Reaction Status Date / Time No Known Allergies Allergy Verified 06/16/17 00:12 ED Review of Systems ROS: Stated complaint: BOIL Other details as noted in HPI Constitutional: denies: chills, fever Eyes: denies: eye pain, eye discharge, vision change ENT: denies: ear pain, throat pain Respiratory: denies: cough, shortness of breath, wheezing Cardiovascular: denies: chest pain, palpitations Endocrine: no symptoms reported Gastrointestinal: denies: abdominal pain, nausea, vomiting, diarrhea Genitourinary: denies: urgency, dysuria, discharge Musculoskeletal: arthralgia (Left axilla pain due to swollen erythematous maculopapular painful rash), myalgia. denies: back pain, joint swelling Skin: rash (Erythematous maculopapular painful swollen rash on left axilla), change in color. denies: lesions Neurological: denies: headache, weakness, paresthesias Psychiatric: denies: anxiety, depression Hematological/Lymphatic: denies: easy bleeding, easy bruising ED Past Medical Hx - Past Medical History Previous Medical History?: Yes Hx Hypertension: No Hx Congestive Heart Failure: No Hx Diabetes: No Hx Deep Vein Thrombosis: No Hx Renal Disease: No Hx Sickle Cell Disease: No Hx Seizures: No Hx Asthma: Yes Hx COPD: No Hx HIV: No Additional medical history: Sinus infection, pre eclampsia 2013 - Surgical History Past Surgical History?: Yes Additional Surgical History: csection x2 - Social History Smoking Status: Never Smoker Substance Use Type: None - Medications Home Medications: Home Medications Medication Instructions Recorded Confirmed Last Taken Type Ferrous Sulfate [Feosol 325 MG tab] 325 mg PO BID #60 tablet 03/14/13 07/02/17 04/19/13 09:00 Rx Labetalol HCl 100 mg PO BID 03/22/13 07/02/17 04/19/13 09:00 History metroNIDAZOLE [Flagyl TAB] 500 mg PO BID #14 tablet 04/20/13 07/02/17 Unknown Rx Acetaminophen/Codeine 1 tab PO Q6H PRN #20 tab 04/01/14 07/02/17 Unknown Rx [Acetaminophen-Codeine #3 TAB] Ibuprofen [Motrin 800 MG tab] 800 mg PO Q8H PRN #60 tablet 04/01/14 07/02/17 Unknown Rx Azithromycin [Zithromax] 500 mg PO QDAY #3 tablet 05/27/14 07/02/17 Unknown Rx Prednisone [predniSONE 5 mg (6-Day 5 mg PO .TAPER #1 tab.ds.pk 05/27/14 07/02/17 Unknown Rx Pack, 21 Tabs)] Amoxicillin [Trimox CAP] 500 mg PO BID #20 capsule 06/25/15 07/02/17 Unknown Rx Amoxicillin [Trimox CAP] 500 mg PO BID #20 capsule 12/23/16 07/02/17 Unknown Rx Docusate Sodium [Colace] 100 mg PO BID PRN #30 capsule 06/29/17 Unknown Rx oxyCODONE /ACETAMINOPHEN [Percocet 1 tab PO Q6HR PRN #30 tablet 06/29/17 Unknown Rx 5/325] Docusate Sodium [Colace] 100 mg PO BID PRN #30 capsule 06/30/17 Unknown Rx Ferrous Sulfate 325 mg PO BID #30 tablet. 06/30/17 Unknown Rx Ibuprofen [Motrin] 600 mg PO Q8H PRN #30 tablet 06/30/17 Unknown Rx oxyCODONE /ACETAMINOPHEN [Percocet 1 tab PO Q6HR PRN #30 tablet 06/30/17 Unknown Rx 5/325] Butalb/Acetamin/Caff 50-325-40 1 tab PO Q6HR PRN #10 tab 04/08/18 Unknown Rx [Fioricet] Naproxen [Naprosyn] 500 mg PO BID #20 tablet 04/08/18 Unknown Rx Cyclobenzaprine [Flexeril 10 MG 10 mg PO QHS #30 tablet 06/05/18 Unknown Rx TAB] Ibuprofen [Motrin 800 MG tab] 800 mg PO Q8HR PRN #30 tablet 06/05/18 Unknown Rx Clindamycin [Clindamycin CAP] 300 mg PO Q8HR #60 capsule 07/28/20 Unknown Rx Ibuprofen [Motrin 600 MG tab] 600 mg PO Q8H PRN #30 tablet 07/28/20 Unknown Rx Ondansetron [Zofran Odt] 4 mg PO Q6HR PRN #15 tab.rapdis 07/28/20 Unknown Rx Sulfamethoxazole/Trimethoprim 1 each PO Q12H #20 tablet 07/28/20 Unknown Rx [Bactrim DS TAB] traMADoL [Ultram 50 MG tab] 50 mg PO Q6HR PRN #12 tablet 07/28/20 Unknown Rx ED Physical Exam - General Limitations: No Limitations General appearance: alert, in no apparent distress - Head Head exam: Present: atraumatic, normocephalic, normal inspection - Eye Eye exam: Present: normal appearance, PERRL, EOMI Pupils: Present: normal accommodation - ENT ENT exam: Present: normal exam, normal orophraynx, mucous membranes moist, TM's normal bilaterally, normal external ear exam - Neck Neck exam: Present: normal inspection, full ROM - Respiratory Respiratory exam: Present: normal lung sounds bilaterally. Absent: respiratory distress, wheezes, rales, rhonchi, stridor, chest wall tenderness, accessory muscle use, decreased breath sounds, prolonged expiratory - Cardiovascular Cardiovascular Exam: Present: regular rate, normal rhythm, normal heart sounds. Absent: systolic murmur, diastolic murmur, rubs, gallop - GI/Abdominal GI/Abdominal exam: Present: soft, normal bowel sounds. Absent: tenderness, rebound, hyperactive bowel sounds, hypoactive bowel sounds, organomegaly, mass, bruit - Extremities Exam Extremities exam: Present: normal inspection, full ROM, normal capillary refill. Absent: tenderness, pedal edema, joint swelling, calf tenderness - Back Exam Back exam: Present: normal inspection, full ROM. Absent: muscle spasm, paraspinal tenderness, vertebral tenderness, rash noted - Neurological Exam Neurological exam: Present: alert, oriented X3, CN II-XII intact, normal gait, reflexes normal - Psychiatric Psychiatric exam: Present: normal affect, normal mood - Skin Skin exam: Present: warm, dry, intact, rash (Erythematous maculopapular fluctuant swelling severely tender rash on the left axilla), erythema ED Course Vital Signs 07/28/20 07/28/20 07/28/20 18:50 20:08 20:09 Temperature 99.2 F Pulse Rate 88 Respiratory 20 20 20 Rate Blood Pressure 126/87 O2 Sat by Pulse 100 Oximetry - I & D Left Arm Type of Procedure: Simple Site: Left axilla Blade Size: 11 I & D Procedure: betadine prep, sterile drapes applied, sterile dressing applied Progress: The left axilla abscess was cleaned with normal saline and Betadine solution. 1% lidocaine solution was injected around the abscess wound and drained anesthesia was fully achieved, scalpel blade #11 was used to incise the area. Copious amounts of purulent discharge drained from the abscess. The fluid collections were broken with hemostat and normal saline solution was used to clean and debride the entire wound. Iodoform quarter-inch gauze was used as a packing material. The wound was then dressed appropriately and the patient tolerated the procedure well. Patient was discharged home on pain medications and antibiotics and advised to return to the ED in 2 days for wound recheck and packing removal. ED Medical Decision Making - Medical Decision Making This is a 30-year-old -German female with a history of asthma who pres ents to the ED with complaint of acute onset persistent painful swollen erythematous maculopapular rash on the left axilla for the last 5 days. Patient states that she has been applying warm compress on the same and that in the last 24 hours the pain and swelling got worse. Patient states that she is unable to perform any active range of motion of the left arm because of worsening pain and swelling on the left axilla. In the ED, patient is alert and oriented x3 and is not in distress. Patient was treated for pain in the ED and also received initial oral antibiotics. The left axilla abscess was incised and drained per protocol. Patient tolerated the procedure well. The wound was then dressed appropriately and the patient was discharged home on pain medications and oral antibiotics. Patient was advised return to the ED in 2 days for wound recheck and packing removal. Patient was otherwise advised to follow-up with her primary care physician in 7 to 10 days for reevaluation or return to the ED immediately if symptoms get worse. - Differential Diagnosis Cellulitis; abscess; folliculitis; Critical care attestation.: If time is entered above; I have spent that time in minutes in the direct care of this critically ill patient, excluding procedure time. ED Disposition Clinical Impression: Cutaneous abscess of left axilla, Cellulitis of left axilla Disposition: TO HOME OR SELFCARE Is pt being admited?: No Does the pt Need Aspirin: No Condition: Stable Instructions: Skin Abscess, [id number], Cellulitis, Adult, [id number], Incision and Drainage, Care After Additional Instructions: Take medication with food, drink plenty of fluids and follow-up with your primary care physician in 7 to 10 days for reevaluation. Return to the emergency department immediately if your symptoms get worse. Otherwise return to the ED in 2 days for wound recheck and packing removal. Prescriptions: Sulfamethoxazole/Trimethoprim [Bactrim DS TAB] 1 each PO Q12H #20 tablet Clindamycin [Clindamycin CAP] 300 mg PO Q8HR #60 capsule Ibuprofen [Motrin 600 MG tab] 600 mg PO Q8H PRN #30 tablet PRN Reason: Pain traMADoL [Ultram 50 MG tab] 50 mg PO Q6HR PRN #12 tablet PRN Reason: Pain Ondansetron [Zofran Odt] 4 mg PO Q6HR PRN #15 tab.rapdis PRN Reason: Nausea Referrals: [facility] [Provider Group] - 3-5 Days Forms: Work/School Release Form(ED) Time of Disposition: 22:59 Print Language: UZBEK
[2020-07-28 23:22] VITALS: BP 118/84
== END 2020-07-28 23:22 | disposition home or self-care (01) ==
LOC: ED 18:18
DX: L02.412 Cutaneous abscess of left axilla (principal); L03.111 Cellulitis of right axilla; J45.909 Unspecified asthma, uncomplicated; Z79.899 Other long term (current) drug therapy
CPT/HCPCS: 99282; Q0162

== ENCOUNTER 2020-07-30 18:17 | Emergency (ER) | payer MEDICAID ==
[2020-07-30 18:40] VITALS: BP 143/89
--- NOTE | 2020-07-30 18:51 | Emergency Department Report ---
ED Recheck HPI - General Chief Complaint: Recheck/Abnormal Lab/Rx Stated Complaint: TO HAVE BOIL CHECKED/SEEN HERE WEDNESDAY Time Seen by Provider: 07/30/20 18:34 Source: patient Mode of arrival: Ambulatory Limitations: No Limitations - History of Present Illness Initial Comments: Patient is a 30-year-old female presents emergency room for packing removal and for wound check. She had an abscess I&D performed on 07/28/2020. She was advised to return emergency department in 2 days and to have the packing removed and the wound reassessed. She states that she has been taking her antibiotics. She denies any increased pain, increased drainage, fever, chills, nausea, vomiting, diarrhea. Past medical history of asthma. No allergies to medications. She is on Depo for control. She denies any missed Depo injections. - Related Data Home Medications Medication Instructions Recorded Confirmed Last Taken Labetalol HCl 100 mg PO BID 03/22/13 07/02/17 04/19/13 09:00 Previous Rx's Medication Instructions Recorded Last Taken Type Ferrous Sulfate [Feosol 325 MG tab] 325 mg PO BID #60 tablet 03/14/13 04/19/13 09:00 Rx metroNIDAZOLE [Flagyl TAB] 500 mg PO BID #14 tablet 04/20/13 Unknown Rx Acetaminophen/Codeine 1 tab PO Q6H PRN #20 tab 04/01/14 Unknown Rx [Acetaminophen-Codeine #3 TAB] Ibuprofen [Motrin 800 MG tab] 800 mg PO Q8H PRN #60 tablet 04/01/14 Unknown Rx Azithromycin [Zithromax] 500 mg PO QDAY #3 tablet 05/27/14 Unknown Rx Prednisone [predniSONE 5 mg (6-Day 5 mg PO .TAPER #1 tab.ds.pk 05/27/14 Unknown Rx Pack, 21 Tabs)] Amoxicillin [Trimox CAP] 500 mg PO BID #20 capsule 06/25/15 Unknown Rx Amoxicillin [Trimox CAP] 500 mg PO BID #20 capsule 12/23/16 Unknown Rx Docusate Sodium [Colace] 100 mg PO BID PRN #30 capsule 06/29/17 Unknown Rx oxyCODONE /ACETAMINOPHEN [Percocet 1 tab PO Q6HR PRN #30 tablet 06/29/17 Unknown Rx 5/325] Docusate Sodium [Colace] 100 mg PO BID PRN #30 capsule 06/30/17 Unknown Rx Ferrous Sulfate 325 mg PO BID #30 tablet. 06/30/17 Unknown Rx Ibuprofen [Motrin] 600 mg PO Q8H PRN #30 tablet 06/30/17 Unknown Rx oxyCODONE /ACETAMINOPHEN [Percocet 1 tab PO Q6HR PRN #30 tablet 06/30/17 Unknown Rx 5/325] Butalb/Acetamin/Caff 50-325-40 1 tab PO Q6HR PRN #10 tab 04/08/18 Unknown Rx [Fioricet] Naproxen [Naprosyn] 500 mg PO BID #20 tablet 04/08/18 Unknown Rx Cyclobenzaprine [Flexeril 10 MG 10 mg PO QHS #30 tablet 06/05/18 Unknown Rx TAB] Ibuprofen [Motrin 800 MG tab] 800 mg PO Q8HR PRN #30 tablet 06/05/18 Unknown Rx Clindamycin [Clindamycin CAP] 300 mg PO Q8HR #60 capsule 07/28/20 Unknown Rx Ibuprofen [Motrin 600 MG tab] 600 mg PO Q8H PRN #30 tablet 07/28/20 Unknown Rx Ondansetron [Zofran Odt] 4 mg PO Q6HR PRN #15 tab.rapdis 07/28/20 Unknown Rx Sulfamethoxazole/Trimethoprim 1 each PO Q12H #20 tablet 07/28/20 Unknown Rx [Bactrim DS TAB] traMADoL [Ultram 50 MG tab] 50 mg PO Q6HR PRN #12 tablet 07/28/20 Unknown Rx Allergies Allergy/AdvReac Type Severity Reaction Status Date / Time No Known Allergies Allergy Verified 06/16/17 00:12 ED Review of Systems ROS: Stated complaint: TO HAVE BOIL CHECKED/SEEN HERE WEDNESDAY Other details as noted in HPI Comment: All other systems reviewed and negative ED Past Medical Hx - Past Medical History Hx Hypertension: No Hx Congestive Heart Failure: No Hx Diabetes: No Hx Deep Vein Thrombosis: No Hx Renal Disease: No Hx Sickle Cell Disease: No Hx Seizures: No Hx Asthma: Yes Hx COPD: No Hx HIV: No Additional medical history: Sinus infection, pre eclampsia 2013 - Surgical History Additional Surgical History: csection x2 - Social History Smoking Status: Never Smoker Substance Use Type: None - Medications Home Medications: Home Medications Medication Instructions Recorded Confirmed Last Taken Type Ferrous Sulfate [Feosol 325 MG tab] 325 mg PO BID #60 tablet 03/14/13 07/02/17 04/19/13 09:00 Rx Labetalol HCl 100 mg PO BID 03/22/13 07/02/17 04/19/13 09:00 History metroNIDAZOLE [Flagyl TAB] 500 mg PO BID #14 tablet 04/20/13 07/02/17 Unknown Rx Acetaminophen/Codeine 1 tab PO Q6H PRN #20 tab 04/01/14 07/02/17 Unknown Rx [Acetaminophen-Codeine #3 TAB] Ibuprofen [Motrin 800 MG tab] 800 mg PO Q8H PRN #60 tablet 04/01/14 07/02/17 Unknown Rx Azithromycin [Zithromax] 500 mg PO QDAY #3 tablet 05/27/14 07/02/17 Unknown Rx Prednisone [predniSONE 5 mg (6-Day 5 mg PO .TAPER #1 tab.ds.pk 05/27/14 07/02/17 Unknown Rx Pack, 21 Tabs)] Amoxicillin [Trimox CAP] 500 mg PO BID #20 capsule 06/25/15 07/02/17 Unknown Rx Amoxicillin [Trimox CAP] 500 mg PO BID #20 capsule 12/23/16 07/02/17 Unknown Rx Docusate Sodium [Colace] 100 mg PO BID PRN #30 capsule 06/29/17 Unknown Rx oxyCODONE /ACETAMINOPHEN [Percocet 1 tab PO Q6HR PRN #30 tablet 06/29/17 Unknown Rx 5/325] Docusate Sodium [Colace] 100 mg PO BID PRN #30 capsule 06/30/17 Unknown Rx Ferrous Sulfate 325 mg PO BID #30 tablet. 06/30/17 Unknown Rx Ibuprofen [Motrin] 600 mg PO Q8H PRN #30 tablet 06/30/17 Unknown Rx oxyCODONE /ACETAMINOPHEN [Percocet 1 tab PO Q6HR PRN #30 tablet 06/30/17 Unknown Rx 5/325] Butalb/Acetamin/Caff 50-325-40 1 tab PO Q6HR PRN #10 tab 04/08/18 Unknown Rx [Fioricet] Naproxen [Naprosyn] 500 mg PO BID #20 tablet 04/08/18 Unknown Rx Cyclobenzaprine [Flexeril 10 MG 10 mg PO QHS #30 tablet 06/05/18 Unknown Rx TAB] Ibuprofen [Motrin 800 MG tab] 800 mg PO Q8HR PRN #30 tablet 06/05/18 Unknown Rx Clindamycin [Clindamycin CAP] 300 mg PO Q8HR #60 capsule 07/28/20 Unknown Rx Ibuprofen [Motrin 600 MG tab] 600 mg PO Q8H PRN #30 tablet 07/28/20 Unknown Rx Ondansetron [Zofran Odt] 4 mg PO Q6HR PRN #15 tab.rapdis 07/28/20 Unknown Rx Sulfamethoxazole/Trimethoprim 1 each PO Q12H #20 tablet 07/28/20 Unknown Rx [Bactrim DS TAB] traMADoL [Ultram 50 MG tab] 50 mg PO Q6HR PRN #12 tablet 07/28/20 Unknown Rx ED Physical Exam - General Limitations: No Limitations General appearance: alert, in no apparent distress - Head Head exam: Present: atraumatic, normocephalic - Eye Eye exam: Present: normal appearance - ENT ENT exam: Present: mucous membranes moist - Respiratory Respiratory exam: Absent: respiratory distress, accessory muscle use - Neurological Exam Neurological exam: Present: alert, oriented X3 - Psychiatric Psychiatric exam: Present: normal affect, normal mood - Skin Skin exam: Present: warm, dry, other (There is a 1 cm opening present to the left axilla with packing present, there is no surrounding erythema, increased warmth, no active drainage, no necrosis) ED Course Vital Signs 07/30/20 18:20 Temperature 98.1 F Pulse Rate 82 Respiratory 18 Rate Blood Pressure 143/89 O2 Sat by Pulse 97 Oximetry ED Recheck MDM - Medical Decision Making Patient is a 30-year-old female presents emergency room for packing removal and for wound check. She had an abscess I&D performed on 07/28/2020. She was advised to return emergency department in 2 days and to have the packing removed and the wound reassessed. She states that she has been taking her antibiotics. She denies any increased pain, increased drainage, fever, chills, nausea, vomiting, diarrhea. Past medical history of asthma. No allergies to medications. She is on Depo for control. She denies any missed Depo injections. Vitals are stable. On exam: There is a 1 cm opening present to the left axilla with packing present, there is no surrounding erythema, increased warmth, no active drainage, no necrosis. Packing removed without any difficulty or complication, there is no drainage, no bleeding, no surrounding cellulitis. Irrigated with saline and sterile dressing applied. Advised patient Please keep area clean, dry, covered. Wash with antibacterial soap and water twice a day and pat dry. No hot tub, no pool, no soaking in water. Showering is fine. Follow-up with your primary care doctor for reexamination. return to emergency room for any new or symptoms. Please take your antibiotics to completion. Critical care attestation.: If time is entered above; I have spent that time in minutes in the direct care of this critically ill patient, excluding procedure time. ED Disposition Clinical Impression: Abscess packing removal Disposition: TO HOME OR SELFCARE Is pt being admited?: No Does the pt Need Aspirin: No Condition: Stable Instructions: Wound Care, Adult Additional Instructions: Please keep area clean, dry, covered. Wash with antibacterial soap and water twice a day and pat dry. No hot tub, no pool, no soaking in water. Showering is fine. Follow-up with your primary care doctor for reexamination. return to emergency room for any new or symptoms. Please take your antibiotics to completion. Referrals: KONSTANTIN MADDEN MD [Primary Care Provider] - 3-5 Days YVETTE CEBALLOS MD [Staff Physician] - 3-5 Days [facility] [Provider Group] - 3-5 Days Time of Disposition: 18:50 Print Language: SYRIAC
== END 2020-07-30 19:24 | disposition home or self-care (01) ==
LOC: ED 18:17
DX: L03.112 Cellulitis of left axilla (principal); Z48.00 Encounter for change or removal of nonsurgical wound dressing; J45.909 Unspecified asthma, uncomplicated; Z98.890 Other specified postprocedural states; Z79.1 Long term (current) use of non-steroidal anti-inflammatories (NSAID); Z79.2 Long term (current) use of antibiotics; Z79.899 Other long term (current) drug therapy
CPT/HCPCS: 99281; 99282

== ENCOUNTER 2020-12-03 11:00 | Emergency (ER) | payer MEDICAID ==
--- NOTE | 2020-12-03 11:29 | Emergency Department Report ---
ED Eye Problem HPI - General Chief complaint: Eye Problems Stated complaint: EYE IRRITATION Time Seen by Provider: 12/03/20 11:20 Source: patient Mode of arrival: Ambulatory Limitations: No Limitations - History of Present Illness Initial comments: 30-year-old female presents to the ER today with complaints of right eye itching. She states that her symptoms started this morning. She states that the itching is mainly to the medial corner of the right eye. She reports associated headache and a dry cough. She reports some increased tearing but otherwise no purulent drainage, crusting or matting this morning. She denies any redness to the eye or swelling around the eye. She denies any apparent injury to the eye. She does not wear contacts or glasses. She denies any welding or grinding. She denies any vision changes. She reports no other symptoms at this time. chief complaint: other (itching to right eye ) -: This morning - Related Data Home Medications Medication Instructions Recorded Confirmed Last Taken Labetalol HCl 100 mg PO BID 03/22/13 07/02/17 04/19/13 09:00 Previous Rx's Medication Instructions Recorded Last Taken Type Ferrous Sulfate [Feosol 325 MG tab] 325 mg PO BID #60 tablet 03/14/13 04/19/13 09:00 Rx metroNIDAZOLE [Flagyl TAB] 500 mg PO BID #14 tablet 04/20/13 Unknown Rx Acetaminophen/Codeine 1 tab PO Q6H PRN #20 tab 04/01/14 Unknown Rx [Acetaminophen-Codeine #3 TAB] Ibuprofen [Motrin 800 MG tab] 800 mg PO Q8H PRN #60 tablet 04/01/14 Unknown Rx Azithromycin [Zithromax] 500 mg PO QDAY #3 tablet 05/27/14 Unknown Rx Prednisone [predniSONE 5 mg (6-Day 5 mg PO .TAPER #1 tab.ds.pk 05/27/14 Unknown Rx Pack, 21 Tabs)] Amoxicillin [Trimox CAP] 500 mg PO BID #20 capsule 06/25/15 Unknown Rx Amoxicillin [Trimox CAP] 500 mg PO BID #20 capsule 12/23/16 Unknown Rx Docusate Sodium [Colace] 100 mg PO BID PRN #30 capsule 06/29/17 Unknown Rx oxyCODONE /ACETAMINOPHEN [Percocet 1 tab PO Q6HR PRN #30 tablet 06/29/17 Unknown Rx 5/325] Docusate Sodium [Colace] 100 mg PO BID PRN #30 capsule 06/30/17 Unknown Rx Ferrous Sulfate 325 mg PO BID #30 tablet. 06/30/17 Unknown Rx Ibuprofen [Motrin] 600 mg PO Q8H PRN #30 tablet 06/30/17 Unknown Rx oxyCODONE /ACETAMINOPHEN [Percocet 1 tab PO Q6HR PRN #30 tablet 06/30/17 Unknown Rx 5/325] Butalb/Acetamin/Caff 50-325-40 1 tab PO Q6HR PRN #10 tab 04/08/18 Unknown Rx [Fioricet] Naproxen [Naprosyn] 500 mg PO BID #20 tablet 04/08/18 Unknown Rx Cyclobenzaprine [Flexeril 10 MG 10 mg PO QHS #30 tablet 06/05/18 Unknown Rx TAB] Clindamycin [Clindamycin CAP] 300 mg PO Q8HR #60 capsule 07/28/20 Unknown Rx Ibuprofen [Motrin 600 MG tab] 600 mg PO Q8H PRN #30 tablet 07/28/20 Unknown Rx Ondansetron [Zofran Odt] 4 mg PO Q6HR PRN #15 tab.rapdis 07/28/20 Unknown Rx Sulfamethoxazole/Trimethoprim 1 each PO Q12H #20 tablet 07/28/20 Unknown Rx [Bactrim DS TAB] traMADoL [Ultram 50 MG tab] 50 mg PO Q6HR PRN #12 tablet 07/28/20 Unknown Rx Amlodipine Besylate [Norvasc] 5 mg PO DAILY #30 tablet 12/03/20 Unknown Rx Cetirizine HCl [Zyrtec 10mg tab] 10 mg PO DAILY #30 tablet 12/03/20 Unknown Rx Ibuprofen [Motrin 800 MG tab] 800 mg PO Q8HR PRN #30 tablet 12/03/20 Unknown Rx Ketotifen Fumarate [Zaditor] 5 ml OP DAILY 7 Days #1 bottle 12/03/20 Unknown Rx Allergies Allergy/AdvReac Type Severity Reaction Status Date / Time No Known Allergies Allergy Verified 06/16/17 00:12 ED Review of Systems ROS: Stated complaint: EYE IRRITATION Other details as noted in HPI Comment: All other systems reviewed and negative Constitutional: denies: chills, fever Eyes: eye discharge (Clear drainage), other (Right eye itching). denies: eye p ain, vision change ENT: denies: ear pain, throat pain, dental pain, hearing loss, epistaxis, congestion Respiratory: cough (Dry cough). denies: shortness of breath, wheezing Cardiovascular: denies: chest pain, palpitations, dyspnea on exertion, edema, syncope, paroxysmal nocturnal dyspnea Gastrointestinal: denies: abdominal pain, nausea, diarrhea, constipation, hematemesis, hematochezia Genitourinary: denies: urgency, dysuria, frequency, hematuria, discharge, abnormal menses, dyspareunia Musculoskeletal: denies: back pain, joint swelling, arthralgia Skin: pruritus. denies: rash, lesions, change in color, change in hair/nails Neurological: headache. denies: weakness, numbness, paresthesias, confusion, abnormal gait, vertigo Psychiatric: denies: anxiety, depression, auditory hallucinations, visual hallucinations, homicidal thoughts, suicidal thoughts Hematological/Lymphatic: denies: easy bleeding, easy bruising, swollen glands ED Past Medical Hx - Past Medical History Previous Medical History?: Yes Hx Hypertension: No Hx Congestive Heart Failure: No Hx Diabetes: No Hx Deep Vein Thrombosis: No Hx Renal Disease: No Hx Sickle Cell Disease: No Hx Seizures: No Hx Asthma: Yes Hx COPD: No Hx HIV: No Additional medical history: Sinus infection, pre eclampsia 2013 - Surgical History Past Surgical History?: Yes Additional Surgical History: csection x2 - Social History Smoking Status: Never Smoker Substance Use Type: None - Medications Home Medications: Home Medications Medication Instructions Recorded Confirmed Last Taken Type Ferrous Sulfate [Feosol 325 MG tab] 325 mg PO BID #60 tablet 03/14/13 07/02/17 04/19/13 09:00 Rx Labetalol HCl 100 mg PO BID 03/22/13 07/02/17 04/19/13 09:00 History metroNIDAZOLE [Flagyl TAB] 500 mg PO BID #14 tablet 04/20/13 07/02/17 Unknown Rx Acetaminophen/Codeine 1 tab PO Q6H PRN #20 tab 04/01/14 07/02/17 Unknown Rx [Acetaminophen-Codeine #3 TAB] Ibuprofen [Motrin 800 MG tab] 800 mg PO Q8H PRN #60 tablet 04/01/14 07/02/17 Unknown Rx Azithromycin [Zithromax] 500 mg PO QDAY #3 tablet 05/27/14 07/02/17 Unknown Rx Prednisone [predniSONE 5 mg (6-Day 5 mg PO .TAPER #1 tab.ds.pk 05/27/14 07/02/17 Unknown Rx Pack, 21 Tabs)] Amoxicillin [Trimox CAP] 500 mg PO BID #20 capsule 06/25/15 07/02/17 Unknown Rx Amoxicillin [Trimox CAP] 500 mg PO BID #20 capsule 12/23/16 07/02/17 Unknown Rx Docusate Sodium [Colace] 100 mg PO BID PRN #30 capsule 06/29/17 Unknown Rx oxyCODONE /ACETAMINOPHEN [Percocet 1 tab PO Q6HR PRN #30 tablet 06/29/17 Unknown Rx 5/325] Docusate Sodium [Colace] 100 mg PO BID PRN #30 capsule 06/30/17 Unknown Rx Ferrous Sulfate 325 mg PO BID #30 tablet. 06/30/17 Unknown Rx Ibuprofen [Motrin] 600 mg PO Q8H PRN #30 tablet 06/30/17 Unknown Rx oxyCODONE /ACETAMINOPHEN [Percocet 1 tab PO Q6HR PRN #30 tablet 06/30/17 Unknown Rx 5/325] Butalb/Acetamin/Caff 50-325-40 1 tab PO Q6HR PRN #10 tab 04/08/18 Unknown Rx [Fioricet] Naproxen [Naprosyn] 500 mg PO BID #20 tablet 04/08/18 Unknown Rx Cyclobenzaprine [Flexeril 10 MG 10 mg PO QHS #30 tablet 06/05/18 Unknown Rx TAB] Clindamycin [Clindamycin CAP] 300 mg PO Q8HR #60 capsule 07/28/20 Unknown Rx Ibuprofen [Motrin 600 MG tab] 600 mg PO Q8H PRN #30 tablet 07/28/20 Unknown Rx Ondansetron [Zofran Odt] 4 mg PO Q6HR PRN #15 tab.rapdis 07/28/20 Unknown Rx Sulfamethoxazole/Trimethoprim 1 each PO Q12H #20 tablet 07/28/20 Unknown Rx [Bactrim DS TAB] traMADoL [Ultram 50 MG tab] 50 mg PO Q6HR PRN #12 tablet 07/28/20 Unknown Rx Amlodipine Besylate [Norvasc] 5 mg PO DAILY #30 tablet 12/03/20 Unknown Rx Cetirizine HCl [Zyrtec 10mg tab] 10 mg PO DAILY #30 tablet 12/03/20 Unknown Rx Ibuprofen [Motrin 800 MG tab] 800 mg PO Q8HR PRN #30 tablet 12/03/20 Unknown Rx Ketotifen Fumarate [Zaditor] 5 ml OP DAILY 7 Days #1 bottle 12/03/20 Unknown Rx ED Physical Exam - General Limitations: No Limitations General appearance: alert, in no apparent distress - Head Head exam: Present: atraumatic, normocephalic, normal inspection - Eye Eye exam: Present: normal appearance, PERRL, EOMI, other (Right eye exam much unremarkable). Absent: conjunctival injection, periorbital swelling, periorbital tenderness Pupils: Present: normal accommodation - Neck Neck exam: Present: normal inspection, full ROM. Absent: meningismus - Respiratory Respiratory exam: Present: normal lung sounds bilaterally. Absent: respiratory distress, wheezes, rales, rhonchi - Cardiovascular Cardiovascular Exam: Present: regular rate, normal rhythm, normal heart sounds - Neurological Exam Neurological exam: Present: alert, oriented X3, CN II-XII intact, normal gait - Psychiatric Psychiatric exam: Present: normal affect, normal mood - Skin Skin exam: Present: intact ED Course Vital Signs 12/03/20 12/03/20 12/03/20 11:04 11:40 12:58 Temperature 98.1 F Pulse Rate 95 H Respiratory 18 Rate Blood Pressure 187/108 180/111 135/79 [Right] O2 Sat by Pulse 100 Oximetry ED Medical Decision Making - Radiology Data Radiology results: report reviewed Patient: NAOMY GARZA MR#: [id number] : 1990 Acct:[id number] Age/Sex: 30 / F ADM Date: 12/03/20 Loc: ED Attending Dr: Ordering Physician: AZUCENA PEPE Date of Service: 12/03/20 Procedure(s): CT head/brain wo con Accession Number(s): [id number] cc: AZUCENA PEPE CT HEAD WITHOUT CONTRAST INDICATION / CLINICAL INFORMATION: Headache/elevated blood pressure. TECHNIQUE: Axial imaging performed from the skull apex through the skull base without the use of contrast. Sagittal and coronal reformatted images. All CT scans at this location are performed using CT dose reduction for ALARA by means of automated exposure control. COMPARISON: None available. FINDINGS: CEREBRAL PARENCHYMA: No significant abnormality. No acute territorial infarct. HEMORRHAGE: None. EXTRA-AXIAL SPACES: Normal in size and morphology for the patient's age. VENTRICULAR SYSTEM: Normal in size and morphology for the patient's age. MIDLINE SHIFT OR HERNIATION: None. CEREBELLUM / BRAINSTEM: No significant abnormality. CALVARIUM: No significant abnormality. ORBITS: Normal as visualized. PARANASAL SINUSES / MASTOID AIR CELLS: Normal as visualized. SOFT TISSUES of HEAD: No significant abnormality. ADDITIONAL FINDINGS: None. IMPRESSION: No acute intracranial abnormality. Signer Name: Conrad Clarke Jr, MD Signed: 12/03/2020 12:21 PM Workstation Name: [id number] Transcribed By: TTR Dictated By: CONRAD CLARKE JR, MD Electronically Authenticated By: CONRAD CLARKE JR, MD Signed Date/Time: 12/03/20 1221 DD/ 1220 TD/TT: - Medical Decision Making 1145 Patient presented to the ER with allergic conjunctivitis type symptoms to her right eye with associated severe headache and a dry cough. Patient blood pressure at the time of triage was noted to be elevated at 180/108. Repeat blood pressure was 180/111. Question patient about her blood pressure. She reports having gestational hypertension when she was with her son who is now 7-year-old but eventually was taken off blood pressure medication. She does have a 3-year-old child but she did not have any gestational hypertension with that . She states that prior to the she never had a history of hypertension. She states that since she delivered her 3-year-old she is not been following up with [facility] or primary care doctor to have a blood pressure check. Patient to be given clonidine 0.2 mg as well as some hydrocodone for pain and will obtain a head CT. 1341: Patient blood pressure much improved after the clonidine and pain medication. Head CT shows nothing acute. Patient currently resting comfortably. She is not in any acute pain distress. She is awake alert oriented x3 and neurologically intact with a normal gait. She is not toxic or ill-appearing. Discussed imaging results with patient. Informed her that we will start her on low-dose blood pressure medication but it is important that she follows up with her primary care doctor to continue monitoring her blood pressure and she needs to be compliant with taking the blood pressure medication daily. Patient expressed understanding of instructions and agree with plan. Patient was stable at time of discharge. Critical care attestation.: If time is entered above; I have spent that time in minutes in the direct care of this critically ill patient, excluding procedure time. ED Disposition Clinical Impression: Allergic conjunctivitis, Allergies, Uncontrolled hypertension, Headache Disposition: - TO HOME OR SELFCARE Is pt being admited?: No Does the pt Need Aspirin: No Condition: Stable Instructions: Allergic Conjunctivitis, Adult, [id number], Allergies, Adult, [id number], Hypertension (ED), Managing Your Hypertension, Hypertension, Adult Additional Instructions: Take the Zyrtec as prescribed. Use antihistamine eyedrops as directed. Start to take take the Norvasc today. Recommend cool compresses to the eye. Follow- up with your primary care doctor continue monitoring of your high blood pressure.. Return to the ER if the eye starts to turn red, swollen, with pus drainage and matting or if your symptoms worsens or changes in any way.. Prescriptions: Ibuprofen [Motrin 800 MG tab] 800 mg PO Q8HR PRN #30 tablet PRN Reason: pain Amlodipine Besylate [Norvasc] 5 mg PO DAILY #30 tablet Ketotifen Fumarate [Zaditor] 5 ml OP DAILY 7 Days #1 bottle Cetirizine HCl [Zyrtec 10mg tab] 10 mg PO DAILY #30 tablet Referrals: YVETTE CEBALLOS MD [Staff Physician] - 3-5 Days Forms: Work/School Release Form(ED) Time of Disposition: 11:31
[2020-12-03] MEDS ORDERED: cloNIDine 0.2 MG TAB PO ONE (11:44)
[2020-12-03] MEDS ORDERED: HYDROcodone/ACETAMINOPHEN 5-325 MG TAB PO ONE (11:45)
--- NOTE | 2020-12-03 12:25 | Cat Scan Report ---
CT HEAD WITHOUT CONTRAST INDICATION / CLINICAL INFORMATION: Headache/elevated blood pressure. TECHNIQUE: Axial imaging performed from the skull apex through the skull base without the use of cont rast. Sagittal and coronal reformatted images. All CT scans at this location are performed using CT dose reduction for ALARA by means of automated exposure control. COMPARISON: None available. FINDINGS: CEREBRAL PARENCHYMA: No significant abnormality. No acute territorial infarct. HEMORRHAGE: None. EXTRA-AXIAL SPACES: Normal in size and morphology for the patient's age. VENTRICULAR SYSTEM: Normal in size and morphology for the patient's age. MIDLINE SHIFT OR HERNIATION: None. CEREBELLUM / BRAINSTEM: No significant abnormality. CALVARIUM: No significant abnormality. ORBITS: Normal as visualized. PARANASAL SINUSES / MASTOID AIR CELLS: Normal as visualized. SOFT TISSUES of HEAD: No significant abnormality. ADDITIONAL FINDINGS: None. IMPRESSION: No acute intracranial abnormality. Signer Name: Conrad Clarke Jr, MD Signed: 12/03/2020 12:21 PM Workstation Name: [id number]
[2020-12-03 12:58] VITALS: BP 135/79
== END 2020-12-03 13:54 | disposition home or self-care (01) ==
LOC: ED 11:00
DX: H10.11 Acute atopic conjunctivitis, right eye (principal); R51.9 Headache, unspecified; I10 Essential (primary) hypertension; J45.909 Unspecified asthma, uncomplicated; Z98.890 Other specified postprocedural states; Z79.1 Long term (current) use of non-steroidal anti-inflammatories (NSAID); Z79.2 Long term (current) use of antibiotics; Z79.899 Other long term (current) drug therapy
CPT/HCPCS: 70450